=== PATIENT | male | born 2005 | race Two or more races ===

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

== ENCOUNTER 2025-01-22 07:39 | Inpatient (IN) | payer SELFPAY ==
[~2025-01-22] VITALS: Ht 175.3 cm; Wt 81.8 kg
[~2025-01-22 07:39] MED LIST: IBUP-1455 PO
[2025-01-22 08:38] LABS: Basophils # (auto) 0.1 10 ^3/uL (0-0.2); Basophils % (auto) 1.1 % (0.0-2.0); Eosinophils # (auto) 0.3 10 ^3/uL (0-0.8); Eosinophils % (auto) 3.2 % (0.0-7.0); Hematocrit 51.7 % (41.0-53.0); Hemoglobin 17.5 g/dL (13.5-17.5); Lymphocytes # (auto) 2.6 10 ^3/uL (0.4-5.4); Lymphocytes % (auto) 29.5 % (10.0-50.0); Mean Corpuscular Hemoglobin 27.8 pg (28.0-32.0); Mean Corpuscular Hgb Conc. 33.8 g/dL (32.0-36.0); Mean Corpuscular Volume 82.1 fL (80.0-100.0); Monocytes # (auto) 0.5 10 ^3/uL (0-1.3); Monocytes % (auto) 6.1 % (0.0-12.0); Neutrophils # (auto) 5.3 10 ^3/uL (1.6-8.6); Neutrophils % (auto) 60.1 % (37.0-80.0); Nucleated Red Blood Cells % 0.2 %; Platelet Count (auto) 311 10^3/uL (140-450); Red Cell Distribution Width 14.4 % (11.8-14.3); White Blood Cell 8.9 10^3/uL (4.4-10.8)
[2025-01-22] MEDS: SODIUM CHLORIDE 0.9% 1,000 ML IVB ONE (08:39)
--- NOTE | 2025-01-22 08:41 | DVH ---
Date: 01/22/2025 08:22 AM Examination: XY KUB ABDOMEN SINGLE VIEW History: Ab pain/Constipation Comparison: None TECHNIQUE: Frontal views of the abdomen was obtained. FINDINGS: Bowel gas pattern is unremarkable. Large stool burden The lung bases are unremarkable. No acute osseous abnormality identified. IMPRESSION: Nonobstructive bowel gas pattern. Large stool burden.
[2025-01-22 08:53] LABS: Alanine Aminotransferase 19 U/L (7-40); Anion Gap 20 (5-15); BUN/Creatinine Ratio 8.1 (10.0-20.0); Blood Urea Nitrogen 11 mg/dL (9-23); Calcium 10.3 mg/dL (8.7-10.4); Chloride 105 mmol/L (98-107); Potassium 4.1 mmol/L (3.5-5.1); Sodium 139 mmol/L (136-145)
[2025-01-22 08:54] LABS: Albumin 5.2 g/dL (3.2-4.8); Alkaline Phosphatase 233 U/L (46-116); Aspartate Aminotransferase < 8 U/L (13-40); Bilirubin, Total 0.4 mg/dL (0.2-1.0); Carbon Dioxide 14 mmol/L (20-31); Glucose 397 mg/dL (74-106); Total Protein 8.4 g/dL (5.7-8.2)
[2025-01-22 09:10] LABS: Lipase 26 U/L (12-53)
[2025-01-22 09:15] LABS: Urine Bacteria None Seen /hpf (None Seen)
[2025-01-22 09:21] LABS: Urine Blood TRACE /uL (Negative); Urine Clarity Clear (Clear); Urine Color Light-Yellow (Yellow); Urine Hyaline Cast MOD /lpf (0 - 2); Urine Mucus FEW (None Seen); Urine Protein, UAD 1+ (Negative); Urine Specific Gravity 1.037 (1.001-1.035); Urine Squamous Epithelial Cell FEW /hpf (<5); Urine Urobilinogen Normal (Negative); Urine WBC < 1 /HPF (0-3); Urine pH 5.5 (5.0-9.0)
[2025-01-22] MEDS: LACTULOSE 20Gm/30ML SOLN PO ONE (09:30)
--- NOTE | 2025-01-22 09:38 | ED.PDOC ---
GI ASSESSMENT HPI Comments 20 year old male with no PCP (Has not seen PCP > 1 year) presents for abdominal pain located to the epigastric region. Symptoms started weeks ago but symptoms have been gradually worsening over the last 3 days. Abdominal pain waxes and wanes. Also reports excessive Polydipsia despite drinking water consistently through day. Drinks > 8 cups of water per day. Admits to polyuria Tried OTC medication without improvement Last bowel movement: 3 days ago Denies fevers chills night sweats unintentional weight loss Denies blood in the stool Denies sick contact with similar symptoms Denies new foods/medications Chief Complaint: Abdominal Pain Time Seen by MD: 07:47 Primary Care Provider: NONE Reviewed Notes: Nurses Notes, Medications, Allergies Allergies: Coded Allergies: NO KNOWN ALLERGIES (Unverified , 10/28/24) Home Meds Active Scripts Glucose Blood (Glucose Meter Test Strips) 1 Dede Dede, 100 DEDE [email or web address], #100 MISC 9 Refills Prov:DEREK AHMADI MD 01/26/25 Blood Glucose Monitoring Suppl (Accu-Chek Guide W/Device) 1 Kit Kit, KIT XX, #1 Prov:DEREK AHMADI MD 01/26/25 Lancets (ACCU-CHEK FASTCLIX LANCET) Lancets Mis, BOX XX, #1 9 Refills Prov:DEREK AHMADI MD 01/26/25 Insulin Pen Needle (FIFTY50 PEN NEEDLES 31G X) 31GX3/16 Mis, 16 XX DAILY, #100 5 Refills Prov:DEREK AHMADI MD 01/26/25 Insulin Glargine (Lantus Solostar) 100 Unit/Ml Inj, 20 UNIT SC DAILY, #1 BOX Prov:DEREK AHMADI MD 01/26/25 Metformin Hydrochloride (Metformin Hcl) 500 Mg Tab, 1 TAB PO BID, #60 TAB 3 Refills Prov:DEREK AHMADI MD 01/24/25 Discontinued Scripts Ibuprofen Micronized (Ibuprofen) 800 Mg Tab, 800 MG PO Q8HP PRN, #20 TAB Prov:ANDREW ADAMS PAC 10/28/24 Information Source: Patient Mode of Arrival: Ambulatory Past Medical History PAST MEDICAL HISTORY: Denies Surgical History: Denies all surgeries Family History Family History: Reviewed,noncontributory to illness, No family hx of Cancer, No family hx of DM, No family hx of Heart vadim, No family hx of HTN, No family hx ofKidney vadim, No family hx of Liver vadim, No family hx of Lung vadim, No family hx of Stroke Social History Smoker: Non-Smoker Alcohol: Denies ETOH Use Drugs: Denies Drug Use Lives In: Home All Other Systems: Reviewed and Negative (per hpi) Physical Exam General Appearance: No Apparent Distress, Normal HEENT: Normal ENT Inspection, Pharynx Normal, TMs Normal Neck: Full Range of Motion, Non-Tender, Normal, Normal Inspection Respiratory: Chest Non-Tender, Lungs Clear, No Accessory Muscle Use, No Respiratory Distress, Normal Breath Sounds Cardiovascular: No Murmur, No Gallop, Regular Rate/Rhythm Breast Exam: Deferred Gastrointestinal: No Organomegaly, No Pulsatile Mass, Normal Bowel Sounds, Soft, Tenderness Genitalia: Deferred Pelvic: Deferred Rectal: Deferred Extremities: No calf tenderness, Normal capillary refill, Normal inspection, Normal range of motion, Non-tender, No pedal edema Musculoskeletal : Apperance: Normal Neurologic: Alert, hunting sales leader II-XII nml as Tested, No Motor Deficits, Normal Affect, Normal Mood, No Sensory Deficits Cerebellar Function: Normal Reflexes: Normal Skin: Dry, Normal Color, Warm Lymphatic: No Adenopathy Was a procedure done? Was a procedure done?: No GI differential Dx Differential Diagnosis: Constipation, Gastroenteritis, UTI, Electrolyte Imbalance, Other X-Ray, Labs, Meds, VS Vital Signs Date Time Temp Pulse Resp B/P (MAP) Pulse Ox O2 Delivery O2 Flow Rate FiO2 01/22/25 07:59 97.1 103 18 137/87 (104) 97 97.1 01/22/25 07:59 103 18 97 Room Air 01/22/25 07:43 97.1 103 18 137/87 (104) 97 97.1 Lab Test 01/22/25 10:17 01/22/25 08:19 01/22/25 07:53 Range/Units POC Glucose 354 H 70-106 mg/dl White Blood Count 8.9 4.4-10.8 10^3/uL Red Blood Count 6.30 H 4.5-5.90 10^6/uL Hemoglobin 17.5 13.5-17.5 g/dL Hematocrit 51.7 41.0-53.0 % Mean Corpuscular Volume 82.1 80.0-100.0 fL Mean Corpuscular Hemoglobin 27.8 L 28.0-32.0 pg Mean Corpuscular Hemoglobin Concent 33.8 32.0-36.0 g/dL Red Cell Distribution Width 14.4 H 11.8-14.3 % Platelet Count 311 140-450 10^3/uL Mean Platelet Volume 9.2 6.9-10.8 fL Neutrophils (%) (Auto) 60.1 37.0-80.0 % Lymphocytes (%) (Auto) 29.5 10.0-50.0 % Monocytes (%) (Auto) 6.1 0.0-12.0 % Eosinophils (%) (Auto) 3.2 0.0-7.0 % Basophils (%) (Auto) 1.1 0.0-2.0 % Neutrophils # (Auto) 5.3 1.6-8.6 10 ^3/uL Lymphocytes # (Auto) 2.6 0.4-5.4 10 ^3/uL Monocytes # (Auto) 0.5 0-1.3 10 ^3/uL Eosinophils # (Auto) 0.3 0-0.8 10 ^3/uL Basophils # (Auto) 0.1 0-0.2 10 ^3/uL Nucleated Red Blood Cells 0.2 % Sodium Level 139 136-145 mmol/L Potassium Level 4.1 3.5-5.1 mmol/L Chloride Level 105 98-107 mmol/L Carbon Dioxide Level 14 L 20-31 mmol/L Anion Gap 20 H 5-15 Blood Urea Nitrogen 11 9-23 mg/dL Creatinine 1.36 H 0.700-1.30 mg/dL Glomerular Filtration Rate Calc 76 >90 mL/min BUN/Creatinine Ratio 8.1 L 10.0-20.0 Serum Glucose 397 H 74-106 mg/dL Hemoglobin A1c 12.2 H <5.7 % A1C Calcium Level 10.3 8.7-10.4 mg/dL Total Bilirubin 0.4 0.2-1.0 mg/dL Aspartate Amino Transferase (AST) < 8 L 13-40 U/L Alanine Aminotransferase (ALT) 19 7-40 U/L Alkaline Phosphatase 233 H 46-116 U/L Total Protein 8.4 H 5.7-8.2 g/dL Albumin 5.2 H 3.2-4.8 g/dL Lipase 26 12-53 U/L Urine Color Light-yellow Yellow Urine Clarity Clear Clear Urine pH 5.5 5.0-9.0 Urine Specific [place] 1.037 H 1.001-1.035 Urine Protein 1+ H Negative Urine Ketones 4+ H Negative Urine Blood Trace H Negative /uL Urine Nitrite Negative Negative Urine Bilirubin Negative Negative Urine Urobilinogen Normal Negative mg/dL Urine Leukocyte Esterase Negative Negative /uL Urine RBC <1 0 - 3 /hpf Urine Microscopic WBC < 1 0-3 /HPF Urine Squamous Epithelial Cells Few <5 /hpf Urine Bacteria None seen None Seen /hpf Urine Hyaline Casts Mod 0 - 2 /lpf Urine Mucus Few None Seen Urine Glucose 4+ H Normal mg/dL PATIENT: LINUS TARIQ DACCT: [id number]: [id number] : 2005 LOC: ER ROOM / BED: / AGE / SEX: 20 / M ADM STATUS: REG ER SERVICE 0 ORDERING PHYSICIAN: LOU JIANG NP PROCEDURE(s): KUB - KUB ABDOMEN SINGLE VIEW REASON: Ab pain/Constipation ORDER NUMBER(s): [id number], ACCESSION NUMBER(s): [id number] Date: 01/22/2025 08:22 AM Examination: XY KUB ABDOMEN SINGLE VIEW History: Ab pain/Constipation Comparison: None TECHNIQUE: Frontal views of the abdomen was obtained. FINDINGS: Bowel gas pattern is unremarkable. Large stool burden The lung bases are unremarkable. No acute osseous abnormality identified. IMPRESSION: Nonobstructive bowel gas pattern. Large stool burden. ATED BY: SANGEETA DIAZ MD DICTATED DATE/TIME: 01/22/25838 SIGNED BY: SANGEETA DIAZ MD SIGNED DATE/TIME: 01/22/25838 CC: X-Ray, Labs, Meds, VS Comment Patients work up was remarkable for large stool burden and uncontrolled DM Labs ordered and reviewed: Anion gap 20, creatinine 1.36, serum glucose 397, alk phos 233 albumin 5.2, urine glucose 4+ Imaging ordered and KUB shows: Nonobstructive bowel gas pattern. Large stool burden. The patient's workup reveals that the patient needs further evaluation and/or treatment for the above medical conditions as the patient has no PCP. IV Hep-Lock ordered, 1 L normal saline given, lactulose x1, 10 units of regular insulin ordered Patient verbalized understanding of the above and is awaiting further evaluation by the admitting service. Time of 1ST Reevaluation: 09:38 Reevaluation 1ST: Unchanged Patient Education/Counseling: Diagnosis, Treatment Family Education/Counseling: Diagnosis, Treatment Departure 1 Departure Time of Disposition: 10:04 Impression: Primary Impression: Abdominal pain Qualified Codes: R10.84 - Generalized abdominal pain Additional Impressions: Constipation Qualified Codes: K59.00 - Constipation, unspecified Hyperglycemia Disposition: ADMITTED INPATIENT Condition: Fair e-Prescriptions Glucose Blood (Glucose Meter Test Strips) 1 Dede Dede 100 DEDE [email or web address], #100 MISC 9 Refills Prov: DEREK AHMADI MD 01/26/25 Blood Glucose Monitoring Suppl (Accu-Chek Guide W/Device) 1 Kit Kit KIT XX, #1 Prov: DEREK AHMADI MD 01/26/25 Lancets (ACCU-CHEK FASTCLIX LANCET) Lancets Mis BOX XX, #1 9 Refills Prov: DEREK AHMADI MD 01/26/25 Insulin Pen Needle (FIFTY50 PEN NEEDLES 31G X) 31GX3/16 Mis 16 XX DAILY, #100 5 Refills Prov: DEREK AHMADI MD 01/26/25 Insulin Glargine (Lantus Solostar) 100 Unit/Ml Inj 20 UNIT SC DAILY, #1 BOX Prov: DEREK AHMADI MD 01/26/25 Metformin Hydrochloride (Metformin Hcl) 500 Mg Tab 1 TAB PO BID, #60 TAB 3 Refills Prov: DEREK AHMADI MD 01/24/25 Critical Care Note Critical Care Time?: No Stability Stability form required: No Heart Score Heart Score: Heart Score Response (Comments) Value History N/A 0 EKG N/A 0 Age N/A 0 Risk Factors N/A 0 Troponin N/A 0 Total 0 LOU JIANG NP Jan 22, 2025 09:38
[2025-01-22] MEDS ORDERED: InsuLIN REG 1unit/0.01ml Soln (100units/ml) IV ONE (10:00)
--- NOTE | 2025-01-22 10:21 | DVHHP2 ---
Admitting Diagnosis: Abdominal pain History of Present Illness 20 year old male with no PCP (Has not seen PCP > 1 year) presents for abdominal pain located to the epigastric region. Symptoms started weeks ago but symptoms have been gradually worsening over the last 3 days. Abdominal pain waxes and wanes. Also reports excessive Polydipsia despite drinking water consistently through the day. Drinks > 8 cups of water per day. Admits to polyuria Tried OTC medication without improvement Last bowel movement: 3 days ago Denies fevers chills night sweats unintentional weight loss Denies blood in the stool Denies sick contact with similar symptoms Denies new foods/medications PAST MEDICAL HISTORY: Denies Surgical History: Denies all surgeries Family History Family History: Reviewed,noncontributory to illness, No family hx of Cancer, No family hx of DM, No family hx of Heart vadim, No family hx of HTN, No family hx ofKidney vadim, No family hx of Liver vadim, No family hx of Lung vadim, No family hx of Stroke Social History Smoker: Non-Smoker Alcohol: Denies ETOH Use Drugs: Denies Drug Use Lives In: Home Allergies: Coded Allergies: NO KNOWN ALLERGIES (Unverified , 10/28/24) Home Meds Active Scripts Ibuprofen Micronized (Ibuprofen) 800 Mg Tab, 800 MG PO Q8HP PRN, #20 TAB Prov:ANDREW ADAMS PAC 10/28/24 Vital Signs Vital Signs Date Time Temp Pulse Resp B/P (MAP) Pulse Ox O2 Delivery O2 Flow Rate FiO2 01/22/25 07:59 97.1 103 18 137/87 (104) 97 97.1 01/22/25 07:59 Room Air Physical Exam Generally-70 years old male, well nourished well developed. Mild distress HEENT-, atraumatic, normocephalic Heart-regular rate and rhythm Lungs-Clear to auscultate bilaterally Abdomen soft mild discomfort, nondistended Musculoskeletal-no edema cyanosis Neuro-AO x3, no focal deficits Results Labs Test 01/22/25 08:19 01/22/25 07:53 Range/Units White Blood Count 8.9 4.4-10.8 10^3/uL Red Blood Count 6.30 H 4.5-5.90 10^6/uL Hemoglobin 17.5 13.5-17.5 g/dL Hematocrit 51.7 41.0-53.0 % Mean Corpuscular Volume 82.1 80.0-100.0 fL Mean Corpuscular Hemoglobin 27.8 L 28.0-32.0 pg Mean Corpuscular Hemoglobin Concent 33.8 32.0-36.0 g/dL Red Cell Distribution Width 14.4 H 11.8-14.3 % Platelet Count 311 140-450 10^3/uL Mean Platelet Volume 9.2 6.9-10.8 fL Neutrophils (%) (Auto) 60.1 37.0-80.0 % Lymphocytes (%) (Auto) 29.5 10.0-50.0 % Monocytes (%) (Auto) 6.1 0.0-12.0 % Eosinophils (%) (Auto) 3.2 0.0-7.0 % Basophils (%) (Auto) 1.1 0.0-2.0 % Neutrophils # (Auto) 5.3 1.6-8.6 10 ^3/uL Lymphocytes # (Auto) 2.6 0.4-5.4 10 ^3/uL Monocytes # (Auto) 0.5 0-1.3 10 ^3/uL Eosinophils # (Auto) 0.3 0-0.8 10 ^3/uL Basophils # (Auto) 0.1 0-0.2 10 ^3/uL Nucleated Red Blood Cells 0.2 % Sodium Level 139 136-145 mmol/L Potassium Level 4.1 3.5-5.1 mmol/L Chloride Level 105 98-107 mmol/L Carbon Dioxide Level 14 L 20-31 mmol/L Anion Gap 20 H 5-15 Blood Urea Nitrogen 11 9-23 mg/dL Creatinine 1.36 H 0.700-1.30 mg/dL Glomerular Filtration Rate Calc 76 >90 mL/min BUN/Creatinine Ratio 8.1 L 10.0-20.0 Serum Glucose 397 H 74-106 mg/dL Calcium Level 10.3 8.7-10.4 mg/dL Total Bilirubin 0.4 0.2-1.0 mg/dL Aspartate Amino Transferase (AST) < 8 L 13-40 U/L Alanine Aminotransferase (ALT) 19 7-40 U/L Alkaline Phosphatase 233 H 46-116 U/L Total Protein 8.4 H 5.7-8.2 g/dL Albumin 5.2 H 3.2-4.8 g/dL Lipase 26 12-53 U/L Urine Color Light-yellow Yellow Urine Clarity Clear Clear Urine pH 5.5 5.0-9.0 Urine Specific [place] [employer] 1.037 H 1.001-1.035 Urine Protein 1+ H Negative Urine Ketones 4+ H Negative Urine Blood Trace H Negative /uL Urine Nitrite Negative Negative Urine Bilirubin Negative Negative Urine Urobilinogen Normal Negative mg/dL Urine Leukocyte Esterase Negative Negative /uL Urine RBC <1 0 - 3 /hpf Urine Microscopic WBC < 1 0-3 /HPF Urine Squamous Epithelial Cells Few <5 /hpf Urine Bacteria None seen None Seen /hpf Urine Hyaline Casts Mod 0 - 2 /lpf Urine Mucus Few None Seen Urine Glucose 4+ H Normal mg/dL Primary Diagnosis Hyperglycemia Constipation OBIE Plan Suspect new onset diabetes Check A1c level Insulin sliding scale while admitted IV fluids for hydration assess for prerenal Bowel regimen Antiemetic Pain control Full code For DVT prophylaxis PPI for GI prophylaxis Plan discussed with: Patient Problems List: (1) Abdominal pain Status: Acute (2) Hyperglycemia Status: Acute (3) Constipation Status: Acute JOSE MARTIN BATISTA MD Jan 22, 2025 10:21
[2025-01-22] MEDS: InsuLIN REG 1unit/0.01ml Soln (100units/ml) SC ONE (10:30)
[2025-01-22] MEDS ORDERED: ONDANSETRON HCL 4 MG/2 ML VIAL IV PRN (11:15)
[2025-01-22] MEDS ORDERED: DEXTROSE (50%) 50ML SYRG IV PRN (11:15)
[2025-01-22] MEDS ORDERED: ACETAMINOPHEN 325 MG TAB PO PRN (11:15)
[2025-01-22] MEDS ORDERED: HYDROcodone-ACET 5/325MG TAB PO PRN (11:15)
[2025-01-22] MEDS: SODIUM CHLORIDE 0.9% 1,000 ML IV ONE (11:15)
[2025-01-22] MEDS: InsuLIN REG 1unit/0.01ml Soln (100units/ml) SC SCH (11:30)
[2025-01-22 11:38] VITALS: BP 138/78; PULSE 87; RESP 18; TEMP 98.1; O2SAT 98; O2SAT 99
[2025-01-22] MEDS: ACCU-CHEK COMFORT CURVE STRIP VI SCH (12:23)
[2025-01-22] MEDS: DOCUSATE SOD 100 MG CAP PO SCH (12:29)
[2025-01-22] MEDS: SENNA 8.6 MG TAB PO SCH (12:29)
[2025-01-22] MEDS: LACTATED RINGER'S 1,000 ML IV ONE (12:30)
[2025-01-22 13:00] VITALS: BP 142/81; PULSE 109; RESP 18; TEMP 98.4; O2SAT 98
[2025-01-22] MEDS: SODIUM CHLOR 0.9% PF (SALINE LOCK) 10ML VIAL/SYR IV SCH (14:23)
[2025-01-22 14:40] VITALS: RESP 16
[2025-01-22 17:00] VITALS: BP 128/76; PULSE 94; RESP 18; TEMP 98.5; O2SAT 100
[2025-01-22 20:00] VITALS: PULSE 95; RESP 17; O2SAT 100
[2025-01-22 21:00] VITALS: BP 127/79; PULSE 95; RESP 17; TEMP 97.6; O2SAT 100
[2025-01-23] VITALS (8 sets, daily range): BP systolic 120–135; BP diastolic 67–81; PULSE 73–83; RESP 16–20; TEMP 97.3–98.1; O2SAT 98–100
[2025-01-23 08:05] LABS: Basophils # (auto) 0 10 ^3/uL (0-0.2); Basophils % (auto) 0.5 % (0.0-2.0); Eosinophils # (auto) 0.4 10 ^3/uL (0-0.8); Eosinophils % (auto) 4.1 % (0.0-7.0); Hematocrit 48.6 % (41.0-53.0); Hemoglobin 16.5 g/dL (13.5-17.5); Lymphocytes # (auto) 2.2 10 ^3/uL (0.4-5.4); Lymphocytes % (auto) 23.8 % (10.0-50.0); Mean Corpuscular Volume 82.3 fL (80.0-100.0); Monocytes # (auto) 0.7 10 ^3/uL (0-1.3); Monocytes % (auto) 7.1 % (0.0-12.0); Neutrophils # (auto) 5.9 10 ^3/uL (1.6-8.6); Neutrophils % (auto) 64.5 % (37.0-80.0); Nucleated Red Blood Cells % 0.1 %; Platelet Count (auto) 262 10^3/uL (140-450); Red Blood Cells 5.91 10^6/uL (4.5-5.90); Red Cell Distribution Width 14.4 % (11.8-14.3); White Blood Cell 9.2 10^3/uL (4.4-10.8)
[2025-01-23 08:34] LABS: Alanine Aminotransferase 16 U/L (7-40); Albumin 4.7 g/dL (3.2-4.8); Anion Gap 16 (5-15); BUN/Creatinine Ratio 5.7 (10.0-20.0); Calcium 10.1 mg/dL (8.7-10.4); Chloride 101 mmol/L (98-107); Total Protein 7.9 g/dL (5.7-8.2)
[2025-01-23 08:35] LABS: Bilirubin, Total 0.8 mg/dL (0.2-1.0)
[2025-01-23 08:42] LABS: Alkaline Phosphatase 159 U/L (46-116); Aspartate Aminotransferase 12 U/L (13-40); Blood Urea Nitrogen 6 mg/dL (9-23); Carbon Dioxide 16 mmol/L (20-31); Glucose 252 mg/dL (74-106); Potassium 3.3 mmol/L (3.5-5.1); Sodium 133 mmol/L (136-145)
--- NOTE | 2025-01-23 22:48 | DVHPN2 ---
Subjective The patient is seen and examined at bedside. Still feel dizzy in nausea Reviewed: Care Plan, H&P, Labs, Medications, Previous Orders, Radiology Changes from previous H/P or p: No Changes Objective Vitals Vital Signs Date Time Temp Pulse Resp B/P (MAP) Pulse Ox O2 Delivery O2 Flow Rate FiO2 01/23/25 21:00 97.7 73 20 121/67 (85) 99 97.7 01/23/25 20:00 Room Air* 0 21 Intake/Output Intake and Output 01/23/25 07:00 Intake Total 1050 ml Balance 1050 ml Intake Oral 800 ml IV Total 250 ml # Voids 6 General Appearance: Alert, Oriented X3, Cooperative, No acute distress HEENT: Atraumatic, PERRLA, EOMI, Mucous membr. moist/pink Neck: Supple Lungs: Clear to auscultation, Normal air movement Cardiovascular: Regular rate, Normal S1, Normal S2, No murmurs, Gallops, Rubs Abdomen: Normal bowel sounds, Soft, No tenderness Neuro: Cranial nerves 3-12 NL Psych/Mental Status: Mental status NL Medications Current Medications Medications Dose Ordered Sig/Mahendra Route Start Time Stop Time Status Last Admin Dose Admin Diagnostic Test (Pha) 1 strip ACHS 01/22/25 11:30 01/23/25 22:17 1 STRIP Insulin Human Regular ACHS SC 01/22/25 11:30 01/23/25 22:24 4 UNITS Dextrose 50 ml UD PRN IV 01/22/25 11:15 Sennosides 17.2 mg DAILY PO 01/22/25 11:15 01/23/25 09:14 17.2 MG Docusate Sodium 100 mg DAILY PO 01/22/25 11:15 01/23/25 09:13 100 MG Sodium Chloride 10 ml Q8HR IV 01/22/25 14:00 01/23/25 22:17 10 ML Acetaminophen 650 mg Q6HP PRN PO 01/22/25 11:15 Acetaminophen/ Hydrocodone Bitart 1 tab Q4HP PRN PO 01/22/25 11:15 Ondansetron HCl 4 mg Q4HP PRN IV 01/22/25 11:15 Laboratory Results Laboratory Tests 01/23/25 07:26 Chemistry Test 01/23/25 07:26 Albumin 4.7 g/dL (3.2-4.8) Calcium Level 10.1 mg/dL (8.7-10.4) Total Protein 7.9 g/dL (5.7-8.2) LFT Test 01/23/25 07:26 Alanine Aminotransferase (ALT) 16 U/L (7-40) Alkaline Phosphatase 159 U/L (46-116) H Aspartate Amino Transferase (AST) 12 U/L (13-40) L Total Bilirubin 0.8 mg/dL (0.2-1.0) Urinalysis Test 01/22/25 07:53 Urine Color Light-yellow (Yellow) Urine Clarity Clear (Clear) Urine pH 5.5 (5.0-9.0) Urine Specific [place] 1.037 (1.001-1.035) Urine Protein 1+ (Negative) H Urine Ketones 4+ (Negative) H Urine Blood Trace /uL (Negative) H Urine Nitrite Negative (Negative) Urine Bilirubin Negative (Negative) Urine Urobilinogen Normal mg/dL (Negative) Urine Leukocyte Esterase Negative /uL (Negative) Urine RBC <1 /hpf (0 - 3) Urine Microscopic WBC < 1 /HPF (0-3) Urine Squamous Epithelial Cells Few /hpf (<5) Urine Bacteria None seen /hpf (None Seen) Urine Hyaline Casts Mod /lpf (0 - 2) Urine Mucus Few (None Seen) Urine Glucose 4+ mg/dL (Normal) H Labs and/or images reviewed: Labs reviewed by me Assessment/Plan Assessment/Plan Diabetes with Hyperglycemia Constipation OBIE Nausea or vomiting Plan: Continuing current management. Continuing with sliding scale insulin. Continuing with IV fluid. Advance diet. Patient said he moved bowel movement. This medical document was created using an electronic medical record system with [employer] direct computerized dictation system. Although this document has been carefully reviewed, there may still be some phonetic and typographical errors. These areas are purely typographical due to imperfections of the software programs, and do not reflect any compromise in the patient's medical care. Plan discussed with: Patient Date of Service: Jan 23, 2025 Billing Provider: DEREK AHMADI MD Common Visit Codes: [id number] INP/OBS CARE(HIGH) DEREK AHMADI MD Jan 23, 2025 22:48
[2025-01-24] VITALS (8 sets, daily range): BP systolic 116–135; BP diastolic 66–84; PULSE 65–92; RESP 17–21; TEMP 97.7–98.1; O2SAT 98–100
[2025-01-24 07:37] LABS: Basophils # (auto) 0 10 ^3/uL (0-0.2); Basophils % (auto) 0.4 % (0.0-2.0); Eosinophils # (auto) 0.3 10 ^3/uL (0-0.8); Eosinophils % (auto) 4.1 % (0.0-7.0); Hematocrit 46.4 % (41.0-53.0); Hemoglobin 16.2 g/dL (13.5-17.5); Lymphocytes # (auto) 2.1 10 ^3/uL (0.4-5.4); Mean Corpuscular Hemoglobin 28.2 pg (28.0-32.0); Mean Corpuscular Volume 80.6 fL (80.0-100.0); Monocytes # (auto) 0.6 10 ^3/uL (0-1.3); Monocytes % (auto) 7.9 % (0.0-12.0); Neutrophils # (auto) 4.8 10 ^3/uL (1.6-8.6); Neutrophils % (auto) 60.6 % (37.0-80.0); Nucleated Red Blood Cells % 0.4 %; Platelet Count (auto) 246 10^3/uL (140-450); Red Blood Cells 5.75 10^6/uL (4.5-5.90); Red Cell Distribution Width 14.1 % (11.8-14.3); White Blood Cell 7.9 10^3/uL (4.4-10.8)
[2025-01-24 07:51] LABS: Alanine Aminotransferase 15 U/L (7-40); Albumin 4.4 g/dL (3.2-4.8); Anion Gap 15 (5-15); BUN/Creatinine Ratio 10.5 (10.0-20.0); Blood Urea Nitrogen 10 mg/dL (9-23); Calcium 10.2 mg/dL (8.7-10.4); Chloride 100 mmol/L (98-107); Total Protein 7.6 g/dL (5.7-8.2)
[2025-01-24 07:52] LABS: Bilirubin, Total 0.8 mg/dL (0.2-1.0)
[2025-01-24 07:55] LABS: Alkaline Phosphatase 153 U/L (46-116); Aspartate Aminotransferase 11 U/L (13-40); Carbon Dioxide 19 mmol/L (20-31); Glucose 242 mg/dL (74-106); Potassium 2.9 mmol/L (3.5-5.1); Sodium 134 mmol/L (136-145)
--- NOTE | 2025-01-24 12:00 | DVHPN2 ---
Subjective The patient is seen and examined at bedside. Still complain of nausea but no vomiting Reviewed: Care Plan, H&P, Labs, Medications, Previous Orders, Radiology Changes from previous H/P or p: No Changes Objective Vitals Vital Signs Date Time Temp Pulse Resp B/P (MAP) Pulse Ox O2 Delivery O2 Flow Rate FiO2 01/24/25 09:11 97.8 65 21 120/66 (84) 100 97.8 01/24/25 08:00 Room Air* 0 21 Intake/Output Intake and Output 01/24/25 07:00 Intake Total 1160 ml Output Total 4 ml Balance 1156 ml Intake Oral 1160 ml Output Urine Total 4 ml General Appearance: Alert, Oriented X3, Cooperative, No acute distress HEENT: Atraumatic, PERRLA, EOMI, Mucous membr. moist/pink Neck: Supple Lungs: Clear to auscultation, Normal air movement Cardiovascular: Regular rate, Normal S1, Normal S2, No murmurs, Gallops, Rubs Abdomen: Normal bowel sounds, Soft, No tenderness Neuro: Cranial nerves 3-12 NL Psych/Mental Status: Mental status NL Medications Current Medications Medications Dose Ordered Sig/Mahendra Route Start Time Stop Time Status Last Admin Dose Admin Diagnostic Test (Pha) 1 strip ACHS 01/22/25 11:30 01/24/25 11:41 1 STRIP Insulin Human Regular ACHS SC 01/22/25 11:30 01/24/25 11:40 10 UNITS Dextrose 50 ml UD PRN IV 01/22/25 11:15 Sennosides 17.2 mg DAILY PO 01/22/25 11:15 01/23/25 09:14 17.2 MG Docusate Sodium 100 mg DAILY PO 01/22/25 11:15 01/23/25 09:13 100 MG Sodium Chloride 10 ml Q8HR IV 01/22/25 14:00 01/24/25 06:22 10 ML Acetaminophen 650 mg Q6HP PRN PO 01/22/25 11:15 Acetaminophen/ Hydrocodone Bitart 1 tab Q4HP PRN PO 01/22/25 11:15 Ondansetron HCl 4 mg Q4HP PRN IV 01/22/25 11:15 Laboratory Results Laboratory Tests 01/24/25 06:41 Chemistry Test 01/24/25 06:41 Albumin 4.4 g/dL (3.2-4.8) Calcium Level 10.2 mg/dL (8.7-10.4) Total Protein 7.6 g/dL (5.7-8.2) LFT Test 01/24/25 06:41 Alanine Aminotransferase (ALT) 15 U/L (7-40) Alkaline Phosphatase 153 U/L (46-116) H Aspartate Amino Transferase (AST) 11 U/L (13-40) L Total Bilirubin 0.8 mg/dL (0.2-1.0) Urinalysis Test 01/22/25 07:53 Urine Color Light-yellow (Yellow) Urine Clarity Clear (Clear) Urine pH 5.5 (5.0-9.0) Urine Specific [place] 1.037 (1.001-1.035) Urine Protein 1+ (Negative) H Urine Ketones 4+ (Negative) H Urine Blood Trace /uL (Negative) H Urine Nitrite Negative (Negative) Urine Bilirubin Negative (Negative) Urine Urobilinogen Normal mg/dL (Negative) Urine Leukocyte Esterase Negative /uL (Negative) Urine RBC <1 /hpf (0 - 3) Urine Microscopic WBC < 1 /HPF (0-3) Urine Squamous Epithelial Cells Few /hpf (<5) Urine Bacteria None seen /hpf (None Seen) Urine Hyaline Casts Mod /lpf (0 - 2) Urine Mucus Few (None Seen) Urine Glucose 4+ mg/dL (Normal) H Labs and/or images reviewed: Labs reviewed by me Assessment/Plan Assessment/Plan New onset diabetes with hemoglobin A1c 12.2 Constipation , resolved OBIE Nausea and vomiting Continuing current management. Continuing with IV fluid. Continuing with sliding scale insulin. We will add Lantus 15 units subQ twice per day. Continuing Zofran p.r.n. for nausea and vomiting Discharge planing This medical document was created using an electronic medical record system with [employer] direct computerized dictation system. Although this document has been carefully reviewed, there may still be some phonetic and typographical errors. These areas are purely typographical due to imperfections of the software programs, and do not reflect any compromise in the patient's medical care. Plan discussed with: Patient Date of Service: Jan 24, 2025 Billing Provider: DEREK AHMADI MD Common Visit Codes: [id number] INP/OBS CARE(HIGH) DEREK AHMADI MD Jan 24, 2025 12:00
[2025-01-24] MEDS ORDERED: METF-370 PO (14:02)
[2025-01-25] VITALS (8 sets, daily range): BP systolic 117–140; BP diastolic 64–89; PULSE 70–83; RESP 17–20; TEMP 97.8–98.2; O2SAT 96–100
[2025-01-25 07:53] LABS: Basophils # (auto) 0.1 10 ^3/uL (0-0.2); Basophils % (auto) 0.8 % (0.0-2.0); Eosinophils # (auto) 0.3 10 ^3/uL (0-0.8); Eosinophils % (auto) 4.4 % (0.0-7.0); Hematocrit 47.1 % (41.0-53.0); Hemoglobin 15.9 g/dL (13.5-17.5); Lymphocytes # (auto) 2.1 10 ^3/uL (0.4-5.4); Lymphocytes % (auto) 32.4 % (10.0-50.0); Mean Corpuscular Hemoglobin 27.3 pg (28.0-32.0); Mean Corpuscular Hgb Conc. 33.8 g/dL (32.0-36.0); Mean Corpuscular Volume 80.6 fL (80.0-100.0); Monocytes # (auto) 0.7 10 ^3/uL (0-1.3); Monocytes % (auto) 10.4 % (0.0-12.0); Neutrophils # (auto) 3.4 10 ^3/uL (1.6-8.6); Nucleated Red Blood Cells % 0.1 %; Platelet Count (auto) 256 10^3/uL (140-450); Red Blood Cells 5.84 10^6/uL (4.5-5.90); Red Cell Distribution Width 14.3 % (11.8-14.3); White Blood Cell 6.5 10^3/uL (4.4-10.8)
[2025-01-25 08:12] LABS: Alanine Aminotransferase 18 U/L (7-40); Albumin 4.4 g/dL (3.2-4.8); Anion Gap 14 (5-15); BUN/Creatinine Ratio 8.5 (10.0-20.0); Bilirubin, Total 0.9 mg/dL (0.2-1.0); Carbon Dioxide 21 mmol/L (20-31); Chloride 100 mmol/L (98-107); Total Protein 7.4 g/dL (5.7-8.2)
[2025-01-25 08:16] LABS: Alkaline Phosphatase 146 U/L (46-116); Aspartate Aminotransferase 11 U/L (13-40); Blood Urea Nitrogen 8 mg/dL (9-23); Glucose 237 mg/dL (74-106); Potassium 2.7 mmol/L (3.5-5.1); Sodium 135 mmol/L (136-145)
[2025-01-25] MEDS: POTASSIUM CHL 20 Meq TABLET PO SCH (10:22)
--- NOTE | 2025-01-25 12:11 | DVHPN2 ---
Subjective The patient is seen and examined at bedside. Still complain of nausea but no vomiting Reviewed: Care Plan, H&P, Labs, Medications, Previous Orders, Radiology Changes from previous H/P or p: No Changes Objective Vitals Vital Signs Date Time Temp Pulse Resp B/P (MAP) Pulse Ox O2 Delivery O2 Flow Rate FiO2 01/25/25 08:41 98.1 74 18 121/75 (90) 100 98.1 01/25/25 08:10 Room Air* 0 21 Intake/Output Intake and Output 01/25/25 07:00 Intake Total 1400 ml Balance 1400 ml Intake Oral 1400 ml # Voids 4 # Bowel Movements 3 General Appearance: Alert, Oriented X3, Cooperative, No acute distress HEENT: Atraumatic, PERRLA, EOMI, Mucous membr. moist/pink Neck: Supple Lungs: Clear to auscultation, Normal air movement Cardiovascular: Regular rate, Normal S1, Normal S2, No murmurs, Gallops, Rubs Abdomen: Normal bowel sounds, Soft, No tenderness Neuro: Cranial nerves 3-12 NL Psych/Mental Status: Mental status NL Medications Current Medications Medications Dose Ordered Sig/Mahendra Route Start Time Stop Time Status Last Admin Dose Admin Diagnostic Test (Pha) 1 strip ACHS 01/22/25 11:30 01/25/25 11:43 1 STRIP Insulin Human Regular ACHS SC 01/22/25 11:30 01/25/25 11:43 6 UNITS Dextrose 50 ml UD PRN IV 01/22/25 11:15 Sennosides 17.2 mg DAILY PO 01/22/25 11:15 01/23/25 09:14 17.2 MG Docusate Sodium 100 mg DAILY PO 01/22/25 11:15 01/23/25 09:13 100 MG Sodium Chloride 10 ml Q8HR IV 01/22/25 14:00 01/25/25 06:11 10 ML Acetaminophen 650 mg Q6HP PRN PO 01/22/25 11:15 Acetaminophen/ Hydrocodone Bitart 1 tab Q4HP PRN PO 01/22/25 11:15 Ondansetron HCl 4 mg Q4HP PRN IV 01/22/25 11:15 Insulin Glargine 15 units BID@0700,2200 SC 01/25/25 22:00 Laboratory Results Laboratory Tests 01/25/25 07:04 Chemistry Test 01/25/25 07:04 Albumin 4.4 g/dL (3.2-4.8) Calcium Level 10.0 mg/dL (8.7-10.4) Total Protein 7.4 g/dL (5.7-8.2) LFT Test 01/25/25 07:04 Alanine Aminotransferase (ALT) 18 U/L (7-40) Alkaline Phosphatase 146 U/L (46-116) H Aspartate Amino Transferase (AST) 11 U/L (13-40) L Total Bilirubin 0.9 mg/dL (0.2-1.0) Urinalysis Test 01/22/25 07:53 Urine Color Light-yellow (Yellow) Urine Clarity Clear (Clear) Urine pH 5.5 (5.0-9.0) Urine Specific [place] 1.037 (1.001-1.035) Urine Protein 1+ (Negative) H Urine Ketones 4+ (Negative) H Urine Blood Trace /uL (Negative) H Urine Nitrite Negative (Negative) Urine Bilirubin Negative (Negative) Urine Urobilinogen Normal mg/dL (Negative) Urine Leukocyte Esterase Negative /uL (Negative) Urine RBC <1 /hpf (0 - 3) Urine Microscopic WBC < 1 /HPF (0-3) Urine Squamous Epithelial Cells Few /hpf (<5) Urine Bacteria None seen /hpf (None Seen) Urine Hyaline Casts Mod /lpf (0 - 2) Urine Mucus Few (None Seen) Urine Glucose 4+ mg/dL (Normal) H Assessment/Plan Assessment/Plan New onset diabetes with hemoglobin A1c 12.2 Constipation , resolved OBIE Nausea and vomiting Continuing current management. Continuing with IV fluid. Continuing with sliding scale insulin. Continuing Lantus 15 units subQ twice per day. Continuing Zofran p.r.n. for nausea and vomiting Discharge planing This medical document was created using an electronic medical record system with [employer] direct computerized dictation system. Although this document has been carefully reviewed, there may still be some phonetic and typographical errors. These areas are purely typographical due to imperfections of the software programs, and do not reflect any compromise in the patient's medical care. Plan discussed with: Patient My Orders Orders - DEREK AHMADI MD Procedure Category Date Status Time Insulin Lantus PHA 01/25/25 In Process (Glargine) (Lantus) 22:00 Date of Service: January 25, 2025 Billing Provider: DEREK AHMADI MD Common Visit Codes: [id number] INP/OBS CARE(HIGH) DEREK AHMADI MD January 25, 2025 12:11
[2025-01-25] MEDS: INSULIN LANTUS (GLARGINE) 1 /0.01ml (100units/ml) SC SCH (22:03)
[2025-01-26 01:00] VITALS: BP 121/69; PULSE 70; RESP 20; TEMP 98; O2SAT 98
[2025-01-26 05:00] VITALS: BP 116/65; PULSE 68; RESP 20; TEMP 97.5; O2SAT 98
[2025-01-26 08:10] VITALS: PULSE 60; RESP 19; O2SAT 100
[2025-01-26 08:15] LABS: Basophils # (auto) 0.1 10 ^3/uL (0-0.2); Basophils % (auto) 0.9 % (0.0-2.0); Eosinophils # (auto) 0.3 10 ^3/uL (0-0.8); Eosinophils % (auto) 4.8 % (0.0-7.0); Hematocrit 47.4 % (41.0-53.0); Hemoglobin 16.4 g/dL (13.5-17.5); Lymphocytes # (auto) 2.1 10 ^3/uL (0.4-5.4); Lymphocytes % (auto) 36.9 % (10.0-50.0); Mean Corpuscular Hemoglobin 28.2 pg (28.0-32.0); Mean Corpuscular Hgb Conc. 34.6 g/dL (32.0-36.0); Mean Corpuscular Volume 81.7 fL (80.0-100.0); Monocytes # (auto) 0.6 10 ^3/uL (0-1.3); Neutrophils # (auto) 2.7 10 ^3/uL (1.6-8.6); Neutrophils % (auto) 47.4 % (37.0-80.0); Nucleated Red Blood Cells % 0.3 %; Platelet Count (auto) 248 10^3/uL (140-450); Red Cell Distribution Width 14.3 % (11.8-14.3); White Blood Cell 5.7 10^3/uL (4.4-10.8)
[2025-01-26 08:26] LABS: Alanine Aminotransferase 17 U/L (7-40); Albumin 4.5 g/dL (3.2-4.8); Anion Gap 12 (5-15); Aspartate Aminotransferase 15 U/L (13-40); BUN/Creatinine Ratio 9.2 (10.0-20.0); Carbon Dioxide 26 mmol/L (20-31); Total Protein 7.9 g/dL (5.7-8.2)
[2025-01-26 08:27] LABS: Bilirubin, Total 0.8 mg/dL (0.2-1.0)
[2025-01-26 08:28] LABS: Alkaline Phosphatase 149 U/L (46-116); Blood Urea Nitrogen 8 mg/dL (9-23); Calcium 10.5 mg/dL (8.7-10.4); Chloride 98 mmol/L (98-107); Glucose 223 mg/dL (74-106); Potassium 3.3 mmol/L (3.5-5.1); Sodium 136 mmol/L (136-145)
[2025-01-26 08:54] VITALS: BP 111/65; PULSE 60; RESP 19; TEMP 97.7; O2SAT 100
[2025-01-26] MEDS ORDERED: INSU-450 XX (12:21)
[2025-01-26] MEDS ORDERED: INSUINJ37 SC (12:21)
[2025-01-26] MEDS ORDERED: BLOO1KIT XX (12:25)
[2025-01-26] MEDS ORDERED: [UNRECOGNIZED DRUG - CODE] XX (12:25)
--- NOTE | 2025-01-26 12:26 | DVHDS2 ---
Discharge Summary Date of Admission Jan 22, 2025 at 11:02 Date of Discharge: January 26, 2025 Labs/Diagnostic Data: Laboratory Results Test 01/26/25 11:27 01/26/25 07:53 01/22/25 08:19 01/22/25 07:53 POC Glucose 229 mg/dl (70-106) White Blood Count 5.7 10^3/uL (4.4-10.8) Red Blood Count 5.80 10^6/uL (4.5-5.90) Hemoglobin 16.4 g/dL (13.5-17.5) Hematocrit 47.4 % (41.0-53.0) Mean Corpuscular Volume 81.7 fL (80.0-100.0) Mean Corpuscular Hemoglobin 28.2 pg (28.0-32.0) Mean Corpuscular Hemoglobin Concent 34.6 g/dL (32.0-36.0) Red Cell Distribution Width 14.3 % (11.8-14.3) Platelet Count 248 10^3/uL (140-450) Mean Platelet Volume 9.0 fL (6.9-10.8) Neutrophils (%) (Auto) 47.4 % (37.0-80.0) Lymphocytes (%) (Auto) 36.9 % (10.0-50.0) Monocytes (%) (Auto) 10.0 % (0.0-12.0) Eosinophils (%) (Auto) 4.8 % (0.0-7.0) Basophils (%) (Auto) 0.9 % (0.0-2.0) Neutrophils # (Auto) 2.7 10 ^3/uL (1.6-8.6) Lymphocytes # (Auto) 2.1 10 ^3/uL (0.4-5.4) Monocytes # (Auto) 0.6 10 ^3/uL (0-1.3) Eosinophils # (Auto) 0.3 10 ^3/uL (0-0.8) Basophils # (Auto) 0.1 10 ^3/uL (0-0.2) Nucleated Red Blood Cells 0.3 % Sodium Level 136 mmol/L (136-145) Potassium Level 3.3 mmol/L (3.5-5.1) Chloride Level 98 mmol/L (98-107) Carbon Dioxide Level 26 mmol/L (20-31) Anion Gap 12 (5-15) Blood Urea Nitrogen 8 mg/dL (9-23) Creatinine 0.87 mg/dL (0.700-1.30) Glomerular Filtration Rate Calc 127 mL/min (>90) BUN/Creatinine Ratio 9.2 (10.0-20.0) Serum Glucose 223 mg/dL (74-106) Calcium Level 10.5 mg/dL (8.7-10.4) Total Bilirubin 0.8 mg/dL (0.2-1.0) Aspartate Amino Transferase (AST) 15 U/L (13-40) Alanine Aminotransferase (ALT) 17 U/L (7-40) Alkaline Phosphatase 149 U/L (46-116) Total Protein 7.9 g/dL (5.7-8.2) Albumin 4.5 g/dL (3.2-4.8) Hemoglobin A1c 12.2 % A1C (<5.7) Lipase 26 U/L (12-53) Urine Color Light-yellow (Yellow) Urine Clarity Clear (Clear) Urine pH 5.5 (5.0-9.0) Urine Specific [place] 1.037 (1.001-1.035) Urine Protein 1+ (Negative) Urine Ketones 4+ (Negative) Urine Blood Trace /uL (Negative) Urine Nitrite Negative (Negative) Urine Bilirubin Negative (Negative) Urine Urobilinogen Normal mg/dL (Negative) Urine Leukocyte Esterase Negative /uL (Negative) Urine RBC <1 /hpf (0 - 3) Urine Microscopic WBC < 1 /HPF (0-3) Urine Squamous Epithelial Cells Few /hpf (<5) Urine Bacteria None seen /hpf (None Seen) Urine Hyaline Casts Mod /lpf (0 - 2) Urine Mucus Few (None Seen) Urine Glucose 4+ mg/dL (Normal) Other Laboratory Tests 01/26/25 07:53 Final Diagnosis/Problems List DM Discharge Disposition: Home Discharge Instruct/Medications Diet: Consistent carbohydrate Activity: No Restrictions, As Tolerated Follow Up/Referral: pcp 1-2 weeks Medications: see med list Discharge Statement: "Patient was advised to return to the ER or call 911 if any headaches, dizziness, shortness of breath, chest pain, abdominal pain, bleeding, fevers, or worsening of medical condition. Patient was counseled about treatment plan, medications, possible side effects, patientverbalized understanding. All questions were answered to the best of my ability. This discharge took greater then 30 minutes in planning, reviewing documentation, counseling the patient, and discussing with other team members." ASSESSMENT ASSESSMENT Assessment DM DEREK AHMADI MD January 26, 2025 12:26
[2025-01-26] MEDS ORDERED: GLUC1TES63 VI (12:33)
[2025-01-26 12:53] VITALS: BP 125/68; PULSE 72; RESP 21; TEMP 98.1; O2SAT 99
[2025-01-26 13:47] VITALS: BP 125/68; PULSE 72; RESP 20; TEMP 98.1; O2SAT 97
== END 2025-01-26 16:00 | disposition home or self-care (01) | DRG 392 ==
LOC: ER 07:39 → OVERFLOW 11:02 → WEST WING 14:20
PROVIDERS: ADMIT Internal Medicine; ATTEND Internal Medicine
DX: K59.00 Constipation, unspecified (principal); N17.9 Acute kidney failure, unspecified; E11.65 Type 2 diabetes mellitus with hyperglycemia; Z79.4 Long term (current) use of insulin; Z79.84 Long term (current) use of oral hypoglycemic drugs; Z79.899 Other long term (current) drug therapy; Z79.1 Long term (current) use of non-steroidal anti-inflammatories (NSAID)
CPT/HCPCS: 36415; 74018; 80053; 81001; 82962; 83036; 83690; 85025; 96360; G0378; J1815